=== PATIENT | male | born 1990 | race Caucasian/White ===

== ENCOUNTER 2024-12-07 09:44 | Emergency (ER) | payer MEDICAID ==
[~2024-12-07] VITALS: Ht 177.8 cm; Wt 68.0 kg
[~2024-12-07 09:44] MED LIST: ACET-2030 PO; DOXY100T2 PO
[2024-12-07 10:44] LABS: CALCIUM 9.6 mg/dL (8.5-10.1); CARBON DIOXIDE 28 mmol/L (21-32); CHLORIDE 102 mmol/L (98-107); CREATININE 0.9 mg/dL (0.6-1.3); GLUCOSE 90 mg/dL (74-106); POTASSIUM 3.6 mmol/L (3.5-5.1); SODIUM SERUM 139 mmol/L (136-145); UREA NITROGEN, BLOOD 16 mg/dL (7-18)
[2024-12-07 10:49] LABS: BASOPHILS % (AUTO) 0.4 % (0.0-2.0); EOSINOPHILS # (AUTO) 0.6 K/uL (0.0-0.7); EOSINOPHILS % (AUTO) 5.3 % (0.0-7.0); HEMATOCRIT 36.5 % (36.7-47.1); HEMOGLOBIN 12.4 g/dL (12.5-16.3); LYMPHOCYTES # (AUTO) 2.2 K/uL (0.8-4.8); LYMPHOCYTES % (AUTO) 17.9 % (20.5-51.5); MEAN CORPUSCULAR HEMOGLOBIN 29.6 uug (23.8-33.4); MEAN CORPUSCULAR HGB CONC 34 g/dL (32.5-36.3); MEAN CORPUSCULAR VOLUME 87.2 fL (73.0-96.2); MONOCYTES # (AUTO) 1.2 K/uL (0.1-1.30); NEUTROPHILS % (AUTO) 66.4 % (38.5-71.5); PLATELET COUNT (AUTO) 393 K/uL (152-348); RED BLOOD CELL COUNT(AUTO) 4.18 MIL/uL (4.06-5.63); RED CELL DISTRIBUTION WIDTH 12.6 % (12.1-16.2)
[2024-12-07 10:55] LABS: ALANINE AMINOTRANSFERASE 20 U/L (16-63); ALBUMIN 2.9 g/dL (3.4-5.0); ALKALINE PHOSPHATASE 91 U/L (50-136); ASPARTATE AMINOTRANSFERASE 26 U/L (15-37); BILIRUBIN,DIRECT 0.2 mg/dL (0.0-0.2); BILIRUBIN,TOTAL 0.4 mg/dL (0.2-1.0); TOTAL PROTEIN, SERUM 8.5 g/dL (6.4-8.2)
[2024-12-07 10:57] LABS: DIFFERENTIAL COMMENT 1
[2024-12-07 12:18] LABS: *BILIRUBIN,URIN NEGATIVE (NEGATIVE); *BLOOD, URINE NEGATIVE (NEGATIVE); *CLARITY,URINE CLEAR (CLEAR); *COLOR,URINE YELLOW (YELLOW); *KETONES,URINE NEGATIVE (NEGATIVE); *PROTEIN,URINE 1+ (NEGATIVE); *UROBILINOGEN,URINE 0.2 E.U./dl (NORMAL); LEUKOCYTE ESTERASE ,URINE NEGATIVE (NEGATIVE); NITRITE, URINE NEGATIVE (NEGATIVE); PH,URINE 5.5 (5.0-8.0); UGLUCOSE NEGATIVE (NEGATIVE)
[2024-12-07 13:02] LABS: SPERM,URINE FEW /HPF (NONE SEEN); SQUAMOUS EPITHELIAL CELL,UR FEW /HPF (NONE SEEN); WBC,URINE 0-3 /HPF (0-3)
[2024-12-07] MEDS ORDERED: HYDR-3972 PO (13:54)
[2024-12-07] MEDS ORDERED: PRED50TA PO (13:54)
[2024-12-07] MEDS ORDERED: methylPREDNISolone SOD SUCC 40 MG/ML VIAL ONE (13:59)
[2024-12-07] MEDS ORDERED: NEOMY/BACITRA/POLYMYXIN B OINT UD PACKET TP ONE (14:00)
[2024-12-07] MEDS: methylPREDNISolone SOD SUCC 40 MG/ML VIAL IV ONE (14:00)
[2024-12-07] MEDS: NEOMY/BACITRA/POLYMYXIN B OINT UD PACKET TP ONE (14:25)
[2024-12-07 15:26] VITALS: BP 130/72; TEMP 98.7; O2SAT 100
== END 2024-12-07 15:28 | disposition home or self-care (01) ==
LOC: ER 09:44
DX: L08.89 Other specified local infections of the skin and subcutaneous tissue (principal); M79.671 Pain in right foot; M79.672 Pain in left foot; R22.42 Localized swelling, mass and lump, left lower limb; R22.41 Localized swelling, mass and lump, right lower limb; Z59.00 Homelessness unspecified; Z79.52 Long term (current) use of systemic steroids; Z87.2 Personal history of diseases of the skin and subcutaneous tissue; Z20.822 Contact with and (suspected) exposure to COVID-19
CPT/HCPCS: 99285; 93970; 96374; 71045; 87426; 80076; 80048; 81001; 82550; 85025; 84145; 85651; 85730; 86140; 87040 ×2; 87086; 84484; 36415; 73590 ×2; 73620 ×2; 93005; 83605; 98960; J2919; A4606; A4663